=== PATIENT | female | born 1940 | race Caucasian/White ===

== ENCOUNTER 2017-01-10 08:59 | Day surgery (SDC) | payer MEDICARE ==
[2017-01-05 08:59] VITALS: BMI 18.8
[~2017-01-10 08:59] MED LIST: LACTATED RINGERS 1,000 ML IV SCH; LIDOCAINE 1% 20 ML VIAL (10MG/ML) FOR IV START INTRADERMA PRN
[2017-01-10 09:48] VITALS: TEMP 97.8
[2017-01-10] MEDS ORDERED: PROPOFOL 10 MG/ML 20 ML VIAL IV ONE (09:50)
--- NOTE | 2017-01-10 10:11 | P.PCN ---
Date of Procedure: 01/10/17 Procedure(s) Performed: BRIEF HISTORY: Patient is a 76-year-old pleasant white female, scheduled for an elective colonoscopy as a part of screening for colorectal neoplasia. PROCEDURE PERFORMED: Colonoscopy. PREOPERATIVE DIAGNOSIS: Screening for colon cancer. IV sedation per Anesthesia. PROCEDURE: After informed consent was obtained, the patient, was brought into the endoscopy unit. IV sedation was administered by Anesthesia under continuous monitoring. Digital rectal examination was normal. Initially the Olympus CF- 160 flexible video colonoscope was then inserted in the rectum, gradually advanced into the cecum without any difficulty. Careful examination was performed as the scope was gradually being withdrawn. Ileocecal valve and the appendiceal orifice were visualized and appeared normal. Prep was excellent. Mucosa of the cecum, ascending colon, transverse colon, descending colon, sigmoid colon, and rectum appeared normal. Retroflexion was performed in the rectum and no lesions were seen. The patient tolerated the procedure well. IMPRESSION: Normal-appearing colon from rectum to cecum with no evidence of colorectal neoplasia. RECOMMENDATIONS: Findings of this examination were discussed with the patient as well as a family. Because of her age she does not need to have any further screening colonoscopies..
[2017-01-10 10:29] VITALS: BP 114/70; PULSE 66; RESP 16
== END 2017-01-10 10:48 | disposition home or self-care (01) ==
LOC: ORWHC2ENDO 08:59
PROVIDERS: ATTEND Internal Medicine Gastroenterology
DX: Z12.11 Encounter for screening for malignant neoplasm of colon (principal); M06.9 Rheumatoid arthritis, unspecified; H35.30 Unspecified macular degeneration; Z79.899 Other long term (current) drug therapy; Z87.891 Personal history of nicotine dependence
CPT/HCPCS: G0121; J2704

== ENCOUNTER → 2017-07-10 | Outpatient (CLI) | payer MEDICARE ==
[2017-07-10 14:42] VITALS: BP 127/78; PULSE 66; TEMP 97.5
--- NOTE | 2017-07-10 15:11 | P.HPOB ---
History of Present Illness H&P Date: 07/10/17 Chief Complaint: The patient is here for her routine gynecologic exam and mammogram. This is a 76-year-old G0 with an LMP of 1984. The patient is status post BRADY with unilateral oophorectomy for benign reasons. The patient is without gynecologic complaints. Review of Systems The patient has lost about 12 pounds over the last year. She denies respiratory , cardiac and G.I. problems. She denies maltreatment or problems with falling. : she denies any significant problems with urinary leakage. Past Medical History Past Medical History: Eye Disorder (MACULAR DEGENERATION), Rheumatoid Arthritis (RA) Additional Past Medical History / Comment(s): Osteopenia. 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 She had a hysterectomy for benign reasons. History of Any Multi-Drug Resistant Organisms: None Reported Past Surgical History: Breast Surgery (Multiple biopsies), Hernia Repair, Hysterectomy (BRADY with unilateral oophorectomy in 1984), Joint Replacement ( Left total hip) Additional Past Surgical History / Comment(s): CATARACT, SKIN CA L ROSALES 2017. Past Anesthesia/Blood Transfusion Reactions: Postoperative Nausea & Vomiting ( PONV) Past Psychological History: No Psychological Hx Reported Smoking Status: Former smoker (Quit 1981) Past Alcohol Use History: Occasional (4 per week) Past Drug Use History: None Reported Additional History: She has been a since 2011 and is not sexually active at this time. - Past Family History Mother Family Medical History: No Reported History Medications and Allergies Home Medications Medication Instructions Recorded Confirmed Type Ascorbic Acid [Vitamin C] 1,000 mg PO BID 01/05/17 07/10/17 History Calcium Carbonate/Vitamin D3 1,200 mg PO DAILY 01/05/17 07/10/17 History [Calcium 600-Vit D3 400 Caplet] Folic Acid 1 mg PO DAILY 01/05/17 07/10/17 History Glucosam/Andre-Msm1/C/Timur/Bosw 1 tab PO DAILY 01/05/17 07/10/17 History [Glucosamine-Chondroitin Tablet] Methotrexate Sodium [Methotrexate] 15 mg PO KAPADIA 01/05/17 07/10/17 History Potassium Gluconate 99 mg PO DAILY 01/05/17 07/10/17 History Vit C/E/Zn/Coppr/Lutein/Zeaxan 1 cap PO BID 01/05/17 07/10/17 History [Preservision Areds 2 Softgel] Allergies Allergy/AdvReac Type Severity Reaction Status Date / Time No Known Allergies Allergy Verified 07/10/17 14:38 Exam - Vital Signs Vital signs: Vital Signs Temp Pulse BP 07/10/17 14:38 97.5 F L 66 127/78 Intake and Output 07/10/17 07/10/17 07/10/17 06:59 14:59 22:59 Other: Weight 54.431 kg Height 5'5", BMI 20. This is a well-developed well-nourished white female who is alert and oriented times 3 in no acute distress. HEENT: Within normal limits. NECK: Supple without mass or thyromegaly. CHEST AND LUNGS: Clear to auscultation. HEART: Regular rate and rhythm. BREASTS: Are without mass or discharge. AXILLARY EXAM: Negative for adenopathy. BACK: Negative for CVA tenderness. ABDOMEN: Soft, nontender, without palpable masses. PELVIC EXAM: External genitalia appears normal with moderate atrophy. Vagina appears normal moderate atrophy. There is no evidence of prolapse. Bimanual examination is negative for mass or tenderness. RECTAL EXAM: Rectovaginal exam is negative for mass or tenderness and is negative for occult blood. EXTREMITIES: Nontender. IMPRESSION: 1. 76-year-old menopausal female status post BRADY with unilateral oophorectomy for benign reasons with normal gynecologic exam. 2. History of osteopenia. The patient is refusing any additional bone density testing or treatment. PLAN: 1. Pap smears have been discontinued. 2. Self Breast awareness was discussed. 3. Screening mammogram will be done today. 4. Osteoporosis prevention was discussed. She is refusing any bonus any testing or treatment at this time. She will call if she changes her mind. 5. She does get flu shots in the fall. 6. She will return in one year.
--- NOTE | 2017-07-12 11:23 | MM ---
Reason for exam: screening (asymptomatic). Last mammogram was performed 1 year and 6 months ago. History: Patient is postmenopausal and is nulliparous. Benign cyst aspiration of the left breast. Benign cyst aspiration of the right breast. 2 benign excisional biopsies of the left breast. 2 benign excisional biopsies of the right breast. Taking estrogen for 24 years. Physical Findings: A clinical breast exam by your physician is recommended on an annual basis and results should be correlated with mammographic findings. MG 3D Screening Mammo W/Cad Bilateral CC and MLO view(s) were taken. Prior study comparison: January 12, 2016, bilateral MG screening mammo w CAD. November 25, 2014, bilateral MG screening mammo w CAD. The breast tissue is extremely dense which could obscure a lesion on mammography. 6mm nodule posterior and medial right breast appears new/larger. Benign oil cysts on the left breast. ASSESSMENT: Incomplete: need additional imaging evaluation, BI-RAD 0 RECOMMENDATION: Special view mammogram and ultrasound of the left breast. [facility] will attempt to contact patient to return for supplemental views and ultrasound.
== END | disposition home or self-care (01) ==
LOC: WWCWWP 13:42
PROVIDERS: ATTEND Obstetrics & Gynecology
DX: Z12.31 Encounter for screening mammogram for malignant neoplasm of breast (principal)
CPT/HCPCS: 77063; 77067

== ENCOUNTER → 2017-07-25 | Outpatient (CLI) | payer MEDICARE ==
--- NOTE | 2017-07-26 09:08 | MM ---
Reason for exam: additional evaluation requested from abnormal screening. Last mammogram was performed less than 1 month ago. History: Patient is postmenopausal and is nulliparous. Benign cyst aspiration of the left breast. Benign cyst aspiration of the right breast. 2 benign excisional biopsies of the left breast. 2 benign excisional biopsies of the right breast. Taking estrogen for 24 years. Physical Findings: Nurse Summary: 1cm nodule in the left breast at 6 o'clock (nurse pascual). MG 3D Work Up W/Cad RT Spot compression CC and LM view(s) were taken of the right breast. Prior study comparison: July 10, 2017, bilateral MG 3d screening mammo w/cad. January 12, 2016, bilateral MG screening mammo w CAD. There is no discrete abnormality. These results were verbally communicated with the patient and result sheet given to the patient on 07/25/17. ASSESSMENT: Probably benign, BI-RAD 3 RECOMMENDATION: Follow-up diagnostic mammogram of the right breast in 6 months. Manage on a clinical basis with regard to left breast palpable abnormality.
--- NOTE | 2017-07-26 09:11 | USB ---
Reason for exam: additional evaluation requested from abnormal screening. History: Patient is postmenopausal and is nulliparous. Benign cyst aspiration of the left breast. Benign cyst aspiration of the right breast. 2 benign excisional biopsies of the left breast. 2 benign excisional biopsies of the right breast. Taking estrogen for 24 years. US Breast Workup Limited MERA Right limited breast ultrasound including focal area of concern, retroareolar and axilla demonstrates no cystic or solid lesion seen. Left limited breast ultrasound including focal area of concern, retroareolar and axilla demonstrates no cystic or solid lesion seen. These results were verbally communicated with the patient and result sheet given to the patient on 07/25/17. ASSESSMENT: Negative, BI-RAD 1 RECOMMENDATION: Follow-up diagnostic mammogram of the right breast in 6 months. Manage on a clinical basis with regard to left breast palpable abnormality.
--- NOTE | 2017-07-31 11:31 | P.PN ---
Progress Note - Text Progress Note Date: 07/31/17 Screening mammogram from 07/10/2017 required a bilateral breast workup including the right sided mammogram and bilateral breast ultrasounds. This workup was done on 07/25/2017 and was found to be probably benign. Follow-up diagnostic mammogram of the right breast in 6 months was recommended. The patient was notified of these results on the day of her workup. An order slip for a diagnostic right mammogram to be done in late December, was mailed to the patient.
== END | disposition home or self-care (01) ==
LOC: RADMAMWWP 14:01
PROVIDERS: ATTEND Obstetrics & Gynecology
DX: R92.8 Other abnormal and inconclusive findings on diagnostic imaging of breast (principal)
CPT/HCPCS: 77065; 76642; G0279; 77061

== ENCOUNTER → 2019-09-03 | Outpatient (CLI) | payer MEDICARE ==
[2019-09-03 13:52] LABS: African American GFR (CKD) >90 (>60 ml/min/1.73 sqM); Blood Urea Nitrogen 14 mg/dL (7-17); Non-African American GFR(CKD) 86 (>60 ml/min/1.73 sqM)
--- NOTE | 2019-09-03 15:32 | CT ---
EXAMINATION TYPE: CT chest wo/w con DATE OF EXAM: 09/03/2019 COMPARISON: None HISTORY: Dyspnea. CT DLP: 205.4 mGycm, Automated exposure control for dose reduction was used. CONTRAST: Performed injected with 100 mL of Isovue M300. TECHNIQUE: Axial images were obtained at 5 mm thick sections. Reconstructed images are reviewed on [employer] computer in the coronal plane. FINDINGS: Portion of the thyroid visualized is normal. Bilateral apical scarring appears to be present. Some mild fibrosis along the right lung periphery up per lung field. Some pneumonitis change is in the posterior lateral lingula. Series 4 image 32 Pulmon arianne fibrosis appears to be at the lung bases. There is some consolidation within the lingula. Atelectasis and pneumonia are most likely within the differential. Underlying neoplasm is not excluded. Follow-up is recommended. A few shoddy lymph nodes are present in the pretracheal space. Largest lymph node may measure up to 0.9 cm. No enlarged lymphadenopathy by CT criteria is evident. The ascending aorta diameter at the le radha of the main pulmonary artery is 3.1 cm. The main pulmonary artery diameter at the bifurcation is 2.0 cm. No suspicious enhancement is evident. Limited CT sections are obtained through the upper abdomen. Abdomen is essentially unremarkable. IMPRESSIONS: 1. Changes suggestive for pulmonary fibrosis. 2. Some atelectasis or consolidation may be within the lingular base. This should be followed. Underl jose neoplasm cannot be excluded.
== END | disposition home or self-care (01) ==
LOC: RADCTMAIN 13:15
PROVIDERS: ATTEND Internal Medicine Rheumatology
DX: R06.00 Dyspnea, unspecified (principal)
CPT/HCPCS: 82565; 84520; 71270; 36415; Q9967

== ENCOUNTER → 2020-07-27 | Outpatient (CLI) | payer MEDICARE ==
[2020-07-27 21:39] LABS: Basophils # (A) 0.07 X 10*3/uL (0.00-0.10); Basophils % (A) 1.1 %; Eosinophils # (A) 0.02 X 10*3/uL (0.04-0.35); Eosinophils % (A) 0.3 %; HCT 36.4 % (37.2-46.3); HGB 11.6 g/dL (12.0-15.0); Lymphocytes # (A) 0.61 X 10*3/uL (0.90-5.00); Lymphocytes % (A) 9.7 %; MCH 31.3 pg (27.0-32.0); MCHC 31.9 g/dL (32.0-37.0); MCV 98.1 fL (80.0-97.0); Mean Platelet Volume 10.6 fL (9.5-12.2); Monocytes # (A) 0.59 X 10*3/uL (0.20-1.00); Monocytes % (A) 9.3 %; Neutrophils # (A) 5.02 X 10*3/uL (1.80-7.70); Neutrophils % (A) 79.4 %; Platelet Count 255 X 10*3/uL (140-440); RBC 3.71 X 10*6/uL (4.10-5.20); WBC 6.32 X 10*3/uL (4.50-10.00)
[2020-07-27 22:46] LABS: Gliadin AB IgA, Deaminated NEGATIVE (NEGATIVE); Gliadin AB IgG, Deaminated NEGATIVE (NEGATIVE)
== END | disposition home or self-care (01) ==
LOC: LABWHC1 11:11
PROVIDERS: ATTEND Nurse Practitioner
DX: R19.7 Diarrhea, unspecified (principal)
CPT/HCPCS: 36415; 83516; 85025; 86140

== ENCOUNTER → 2020-08-27 | Day surgery (SDC) | payer MEDICARE ==
[2020-08-24 13:37] VITALS: BMI 19.1
[~2020-08-27] MED LIST changes: -LIDOCAINE 1% 20 ML VIAL (10MG/ML) FOR IV START INTRADERMA PRN; +PROPOFOL 10 MG/ML 20 ML VIAL IV ONE
[2020-08-27 10:05] VITALS: TEMP 97.8
[2020-08-27 10:13] LABS: Glucose,Whole Blood 82 mg/dL (75-99)
--- NOTE | 2020-08-27 10:52 | P.PCN ---
Date of Procedure: 08/27/20 Procedure(s) Performed: BRIEF HISTORY: Patient is a 79-year-old pleasant white female scheduled for an elective colonoscopy as a part of evaluation of chronic diarrhea for the last 3 months duration. PROCEDURE PERFORMED: Colonoscopy with random biopsies. PREOPERATIVE DIAGNOSIS: Chronic diarrhea of 3 months duration. IV sedation per Anesthesia. PROCEDURE: After informed consent was obtained, the patient, was brought into the endoscopy unit. IV sedation was administered by Anesthesia under continuous monitoring. Digital rectal examination was normal. Initially the Olympus CF-160 flexible video colonoscope was then inserted in the rectum, gradually advanced into the cecum without any difficulty. Careful examination was performed as the scope was gradually being withdrawn. Ileocecal valve and the appendiceal orifice were visualized and appeared normal. Prep was excellent. Mucosa of the cecum, ascending colon, transverse colon, descending colon, sigmoid colon, and rectum appeared normal. Random biopsies were done from ascending and descending colon to rule out microscopic/collagenous colitis Retroflexion was performed in the rectum and no lesions were seen. The patient tolerated the procedure well. IMPRESSION: Normal-appearing colon from rectum to cecum with no evidence of colorectal neoplasia . RECOMMENDATIONS: Findings of this examination were discussed with the patient as well as a family. She was advised to follow with the biopsy results. She'll be seen in office in 2 weeks..
[2020-08-27 10:55] VITALS: PULSE 74; RESP 17
[2020-08-27 11:10] VITALS: BP 102/70
== END ==
LOC: ORWHC2ENDO 08:39
PROVIDERS: ATTEND Internal Medicine Gastroenterology
DX: K52.9 Noninfective gastroenteritis and colitis, unspecified (principal); J84.10 Pulmonary fibrosis, unspecified; Z79.52 Long term (current) use of systemic steroids
CPT/HCPCS: 45380; J2704; 88305; 88313